=== PATIENT | male | born 1950 | race Caucasian/White ===

== ENCOUNTER 2017-03-24 09:21 | Emergency (ER) | payer MEDICARE, OTHER ==
[~2017-03-24] VITALS: Ht 185.4 cm; Wt 104.0 kg
[~2017-03-24 09:21] MED LIST: APIX5TAB PO; CARV3.1260 PO; DIGO125T PO; FURO20TA3 PO; GLYB2.5T2 PO; LOSA25TA2 PO
[2017-03-24 09:37] VITALS: Ht 185.4 cm; Wt 104.0 kg
[2017-03-24] MEDS ORDERED: LIDOCAINE 1% (MDV) 20 ML INJ SC ONE (10:30)
[2017-03-24] MEDS ORDERED: ACETAMINOPHEN 325 MG TAB PO ONE (10:30)
--- NOTE | 2017-03-24 10:36 | ERD ---
ER Documentation Chief Complaint Date/Time DATE: 03/24/17 TIME: 10:31 Chief Complaint RT 3RD FINGER PAIN SINCE YESTERDAY "I GOT A SPLINTER WHILE PULLING WEEDS" HPI 67-year-old male with history of unknown heart condition presents emergency department stating that while pulling weeds yesterday he he got a splinter underneath the right third digit fingernail. Patient states that since that time he experienced a constant throbbing 2 out of 10 pain which is worse with palpation of the area. Patient also describes minor redness and swelling of the affected digit. Patient denies any other trauma or head injury associated with injury. ROS All systems reviewed and are negative except as per history of present illness. Medications Home Meds Active Scripts Cephalexin* (Keflex*) 500 Mg Capsule, 500 MG PO BID for 5 Days, CAP Prov:DASIA MUNOZ PA-C 03/24/17 Glyburide* (Glyburide*) 2.5 Mg Tablet, 2.5 MG PO DAILY, #30 TAB 0 Refills Prov:BEN QUIÑONES MD 05/09/16 Furosemide* (Furosemide*) 20 Mg Tablet, 20 MG PO DAILY for 30 Days, #30 TAB 0 Refills Prov:BEN QUIÑONES MD 05/09/16 Losartan Potassium* (Cozaar*) 25 Mg Tablet, 12.5 MG PO BID for 30 Days, #30 TAB 1 Refill Prov:BEN QUIÑONES MD 05/08/16 Digoxin* (Digitek*) 125 Mcg Tablet, 0.125 MG PO DAILY@13 for 30 Days, #30 TAB 1 Refill Prov:BEN QUIÑONES MD 05/08/16 Apixaban* (Eliquis*) 5 Mg Tablet, 5 MG PO BID for 30 Days, #60 TAB 1 Refill Prov:BEN QUIÑONES MD 05/08/16 Carvedilol* (Carvedilol*) 3.125 Mg Tablet, 3.125 MG PO BID for 30 Days, #60 TAB 1 Refill Prov:BEN QUIÑONES MD 05/08/16 Allergies Allergies: Coded Allergies: No Known Allergy (Unverified , 05/04/16) PMhx/Soc History of Surgery: Yes (L thumb laceration repair) Anesthesia Reaction: No Hx Neurological Disorder: No Hx Respiratory Disorders: No Hx Psychiatric Problems: No Hx Miscellaneous Medical Probl: Yes (labile BP, obesity) Hx Alcohol Use: No Hx Substance Use: No Hx Tobacco Use: No Physical Exam Vitals Vital Signs Date Time Temp Pulse Resp B/P Pulse Ox O2 Delivery O2 Flow Rate FiO2 03/24/17 09:37 98.4 69 16 133/88 96 Physical Exam Const: Well-developed, well-nourished, no acute distress Head: Atraumatic Eyes: Normal Conjunctiva ENT: Normal External Ears, Nose and Mouth. Neck: Full range of motion..~ No meningismus. Resp: Clear to auscultation bilaterally Cardio: Regular rate and rhythm, no murmurs Abd: Soft, non tender, non distended. Normal bowel sounds Skin: Mild erythema and swelling localized to the third distal digit of the right hand. No evidence of bleeding or purulent drainage. No petechiae or rashes Back: No midline or flank tenderness Ext: Linear splinterlike foreign body appreciated deep to the right third digit fingernail with mild surrounding erythema and swelling. Slight tenderness to palpation of the lateral fingernail. Patient has full range of motion at the DIP joint. 2 point discrimination intact along the radial and ulnar aspect of the affected digit. Brisk capillary refill. Skin warm and well perfused. Neur: Awake and alert Psych: Normal Mood and Affect Results 24 hrs Current Medications Medications (Trade) Dose Ordered Sig/Lavern Route PRN Reason Start Time Stop Time Status Last Admin Dose Admin Acetaminophen (Tylenol Tab) 650 mg ONCE ONCE PO 03/24/17 10:30 03/24/17 10:31 DC 03/24/17 10:33 Lidocaine (Xylocaine 1% (Mdv) 20 ml) 20 ml ONCE ONCE SC 03/24/17 10:30 03/24/17 10:31 DC Procedures/MDM Attempted to remove debris and subungual splinter with tweezers while in the ER. Nail was slightly avulsed and some debris was removed. I discussed with the patient the option to numb the finger and continue to avulse the nail until the entire splinter can be removed. Patient refused, stating that he would rather let the splinter, but on its own. Patient states that his main concern was infection of the finger, as he noticed some erythema and swelling. Exam and w/u not consistent w/ sepsis, deep space infection, or foreign body. Patient received Tylenol in the emergency department. Patient instructed to apply topical mupirocin on the area daily and I will provide him with a course of antibiotic therapy to start if his symptoms begin to worsen. Patient to continue Tylenol for pain. Return to the emergency department 48 hours for wound check or sooner if pain continues. Based on patient's history of present illness and physical examination the decision was made to discharge. The patient was re-evaluated after ED treatment and stabilizing measures, and symptoms have improved. There is no evidence of life threatening injuries or illnesses at this time. On re-examination, patient resting in no distress, stable vital signs, reports feeling better and safe for discharge with outpatient follow up with PMD in 1-2 days. Patient given return precautions. Departure Diagnosis: Primary Impression: Pain of finger Laterality: right Qualified Code: M79.644 - Pain of finger of right hand Additional Impression: Splinter DASIA MUNOZ PA-C Mar 24, 2017 10:36
[2017-03-24] MEDS ORDERED: CEPH-443 PO (10:51)
== END 2017-03-24 11:07 | disposition home or self-care (01) ==
LOC: FTE 09:21
DX: S60.452A Superficial foreign body of right middle finger, initial encounter (principal); E66.9 Obesity, unspecified; W45.8XXA Other foreign body or object entering through skin, initial encounter; Y92.9 Unspecified place or not applicable; Z68.30 Body mass index [BMI] 30.0-30.9, adult; Z79.01 Long term (current) use of anticoagulants; Z79.84 Long term (current) use of oral hypoglycemic drugs

== ENCOUNTER 2019-01-26 15:13 | Emergency (ER) | payer MEDICARE, OTHER ==
[~2019-01-26] VITALS: Ht 172.7 cm; Wt 75.0 kg
[~2019-01-26 15:13] MED LIST changes: +CEPH-443 PO
[2019-01-26] MEDS ORDERED: TRANEXAMIC ACID 1GM/100ML(PMX) 100 ML IVPB STA (15:25)
[2019-01-26] MEDS ORDERED: SOD CHLORIDE 0.9% 500 ML IV STA (15:25)
[2019-01-26] MEDS ORDERED: DESMOPRESSIN 20 MCG in SOD CHLORIDE 0.9% 50 ML IVPB ONE (15:30)
[2019-01-26] MEDS ORDERED: LABETALOL HCL 20MG INJ IV ONE (16:00)
[2019-01-26] MEDS ORDERED: TRANEXAMIC ACID 1,000 MG/10 ML VIAL IRR ONE (16:00)
--- NOTE | 2019-01-26 16:02 | ERD ---
ER Documentation Chief Complaint Chief Complaint Bleeding from mouth HPI 68-year-old male presenting with bleeding from his dental extraction site. He had multiple teeth extracted today by his dentist. He states that he is on aspirin for his atrial fibrillation and stopped taking it last night. He was not told to stop taking it sooner. He denies being on any other blood thinners. He denies any dizziness, chest pain, palpitations, shortness of breath. He is however very scared that he has lost a lot of blood. I was told that the patient was spitting up multiple clots while in triage. ROS All systems reviewed and are negative except as per history of present illness. Medications Home Meds Active Scripts Cephalexin* (Keflex*) 500 Mg Capsule, 500 MG PO BID for 5 Days, CAP Prov:DASIA MUNOZ PA-C 03/24/17 Glyburide* (Glyburide*) 2.5 Mg Tablet, 2.5 MG PO DAILY, #30 TAB 0 Refills Prov:BEN QUIÑONES MD 05/09/16 Furosemide* (Furosemide*) 20 Mg Tablet, 20 MG PO DAILY for 30 Days, #30 TAB 0 Refills Prov:BEN QUIÑONES MD 05/09/16 Losartan Potassium* (Cozaar*) 25 Mg Tablet, 12.5 MG PO BID for 30 Days, #30 TAB 1 Refill Prov:BEN QUIÑONES MD 05/08/16 Digoxin* (Digitek*) 125 Mcg Tablet, 0.125 MG PO DAILY@13 for 30 Days, #30 TAB 1 Refill Prov:BEN QUIÑONES MD 05/08/16 Apixaban* (Eliquis*) 5 Mg Tablet, 5 MG PO BID for 30 Days, #60 TAB 1 Refill Prov:BEN QUIÑONES MD 05/08/16 Carvedilol* (Carvedilol*) 3.125 Mg Tablet, 3.125 MG PO BID for 30 Days, #60 TAB 1 Refill Prov:BEN QUIÑONES MD 05/08/16 Allergies Allergies: Coded Allergies: No Known Allergy (Unverified , 05/04/16) PMhx/Soc History of Surgery: Yes (L thumb laceration repair) Anesthesia Reaction: No Hx Neurological Disorder: No Hx Respiratory Disorders: No Hx Cardiac Disorders: Yes (A. fib, hypertension) Hx Psychiatric Problems: No Hx Miscellaneous Medical Probl: Yes (labile BP, obesity) Hx Alcohol Use: No Hx Substance Use: No Hx Tobacco Use: No FmHx Family History: No diabetes Physical Exam Physical Exam Const: Nontoxic, covered with blood, spitting out blood clots from mouth Head: Atraumatic Eyes: Normal Conjunctiva ENT: Copious amount of blood with clots in the oropharynx. Right upper posterior molar extraction site with active oozing of blood. No other sites of bleeding identified. Airway patent. Normal phonation. Neck: Full range of motion. No meningismus. Resp: Clear to auscultation bilaterally Cardio: Regular rate and rhythm, no murmurs Abd: Soft, nondistended Skin: No petechiae or rashes Ext: No cyanosis, or edema Neur: Awake and alert Psych: Normal Mood and Affect Result Diagram: 01/26/19 1542 01/26/19 1542 Results 24 hrs Laboratory Tests Test 01/26/19 15:42 White Blood Count 7.4 10^3/ul Red Blood Count 3.98 10^6/ul Hemoglobin 13.4 g/dl Hematocrit 38.2 % Mean Corpuscular Volume 96.0 fl Mean Corpuscular Hemoglobin 33.7 pg Mean Corpuscular Hemoglobin Concent 35.1 g/dl Red Cell Distribution Width 11.9 % Platelet Count 183 10^3/UL Mean Platelet Volume 9.8 fl Immature Granulocytes % 0.400 % Neutrophils % 62.7 % Lymphocytes % 25.0 % Monocytes % 8.0 % Eosinophils % 3.4 % Basophils % 0.5 % Nucleated Red Blood Cells % 0.0 /100WBC Immature Granulocytes # 0.030 10^3/ul Neutrophils # 4.6 10^3/ul Lymphocytes # 1.8 10^3/ul Monocytes # 0.6 10^3/ul Eosinophils # 0.3 10^3/ul Basophils # 0.0 10^3/ul Nucleated Red Blood Cells # 0.0 10^3/ul Prothrombin Time 11.9 Sec Prothrombin Time Ratio 0.9 INR International Normalized Ratio 0.87 Activated Partial Thromboplast Time 26.7 Sec Sodium Level 141 mmol/L Potassium Level 4.5 mmol/L Chloride Level 107 mmol/L Carbon Dioxide Level 25 mmol/L Anion Gap 9 Blood Urea Nitrogen 26 mg/dl Creatinine 0.82 mg/dl Est Glomerular Filtrat Rate mL/min > 60 mL/min Glucose Level 124 mg/dl Calcium Level 9.3 mg/dl Current Medications Medications Dose Sig/Lavern Start Time Status Last (Trade) Ordered Route PRN Stop Time Admin Dose Reason Admin Sodium 500 ml @ Q1H STAT 01/26/19 DC 01/26/19 Chloride 500 mls/hr IV 15:25 16:04 01/26/19 16:24 55 ml @ ONCE ONCE 01/26/19 DC 01/26/19 Desmopressin 110 mls/hr IVPB 15:30 16:03 Acetate 20 01/26/19 15:59 mcg/ Sodium Chloride Tranexamic 100 ml @ ONCE STAT 01/26/19 Cancel Acid 200 mls/hr IVPB 15:25 01/26/19 15:54 Labetalol 10 mg ONCE ONCE 01/26/19 DC 01/26/19 HCl IV 16:00 15:57 (Labetalol) 01/26/19 16:01 Tranexamic 1,000 mg ONCE ONCE 01/26/19 DC Acid IRR 16:00 (Tranexamic 01/26/19 16:01 Acid) Procedures/MDM EMERGENT LABS AND DIAGNOSTIC STUDIES: Lab Results above were reviewed and interpreted by me. CBC: no anemia or evidence of infection CMP: No evidence of electrolyte abnormality, renal failure, hypoglycemia, liver failure, or biliary obstruction Coags: Within normal limits Initial Nursing notes reviewed. Previous Medical Records requested via the Electronic Health Record. EMERGENCY DEPARTMENT COURSE / MEDICAL DECISION MAKING: Patient was immediately placed in a bed and vitals were taken. Bleeding was identified from the posterior upper right molar extraction site. Pressure was applied with gauze. His blood pressure was noted to be elevated, so labetalol 10 mg IV was ordered. IV was placed and DDAVP administered. Gauze soaked with TXA was placed in his mouth and pressure was applied for about 20 minutes. There was no signs of airway compromise. Patient was able to speak in full sentences without difficulty. The TXA helped but did not resolve the bleeding. Surgicel was applied to the bleeding site, then TXA soaked gauze was applied again. Upon reevaluation, the patient's bleeding has stopped. The gauze in his mouth is soaked with blood. He is hemodynamically stable. I spoke with his dentist, Dr. Virgie Rodriguez. She agreed to wait to have the patient come to her office which is down the street. She plans on putting possibly a suture in there. I spoke with the patient and he is agreeable with this plan. He denies any dizziness and states he feels much better. Patient will be sent directly to the dentist's office. Critical Care Time: 45 minutes Treatments/Evaluations: Close monitoring and treatment of unstable vital signs, cardiorespiratory, and neurologic status, while maintaining tight balance of fluid, respiratory, and cardiac interventions. This time includes discussing the case with the patient and the patients family. This time does not include all procedures stated elsewhere in this record. This time also includes reviewing old records, labs and radiological studies. This time includes examining and re- examining the patient. Additionally, this time also includes arranging care with admitting and consulting physicians. Patient's blood pressure was elevated (>120/80) but appears stable without evidence of hypertensive emergency or urgency. The patient was counseled about the risks of hypertension and urged to pursue outpatient monitoring and therapy within a week with their primary care physician. Departure Diagnosis: Primary Impression: Active bleeding Additional Impression: Surgical wound hemorrhage after dental procedure Condition: SUZETTE Pabon MD Jan 26, 2019 16:02
[2019-01-26 17:07] VITALS: Ht 172.7 cm; Wt 75.0 kg
[2019-01-26 17:09] VITALS: BP 111/47; PULSE 75; RESP 18
[2019-01-26] MEDS ORDERED: HYDROmorphONE 2 MG/ML SYG IV PRN (19:00)
== END 2019-01-26 17:28 | disposition home or self-care (01) ==
LOC: E/R 15:13
DX: K91.840 Postprocedural hemorrhage of a digestive system organ or structure following a digestive system procedure (principal); I10 Essential (primary) hypertension; E66.9 Obesity, unspecified; Z79.01 Long term (current) use of anticoagulants; Z68.25 Body mass index [BMI] 25.0-25.9, adult
CPT/HCPCS: 36415; 80048; 85025; 85610; 85730; 86850; 86900; 86901; 96365; 96375; 99291; J2597; J7040